=== PATIENT | female | born 1940 | race Caucasian/White ===

== ENCOUNTER 2017-10-18 11:29 | Day surgery (SDC) | payer MEDICARE ==
[2017-10-15 14:14] LABS: BLOOD UREA NITROGEN 28 mg/dL (7-18)
[2017-10-15 14:19] LABS: ASPARTATE AMINO TRANSFERASE 23 U/L (15-37)
[~2017-10-18] VITALS: Ht 157.5 cm; Wt 81.1 kg
[~2017-10-18 11:29] MED LIST: CHOL100012 PO; DILT180C59 PO; FEBU40TA PO; HYDR12.58 PO; PANT40TA5 PO; PRAV80TA2 PO; VALS320T2 PO
[2017-10-18 11:52] VITALS: BP 153/75
[2017-10-18] MEDS ORDERED: LACTATED RINGERS 1,000 ML IV SCH (11:54)
[2017-10-18] MEDS ORDERED: ROCURONIUM 10 MG/ML,10ML ONE (13:53)
[2017-10-18] MEDS ORDERED: SUCCINYLCHOLINE 20 MG/ML, 10ML ONE (13:53)
[2017-10-18] MEDS ORDERED: PROPOFOL 10 MG/ML, 20ML ONE (13:53)
[2017-10-18] MEDS ORDERED: DEXAMETHASONE 4 MG/ML, 1ML ONE ×2 (14:19)
[2017-10-18] MEDS ORDERED: ONDANSETRON 2MG/ML, 2ML ONE (14:19)
== END 2017-10-18 17:15 ==
LOC: OUT 11:29
PROVIDERS: ATTEND Internal Medicine Gastroenterology
DX: K80.50 Calculus of bile duct without cholangitis or cholecystitis without obstruction (principal); K31.7 Polyp of stomach and duodenum; K57.10 Diverticulosis of small intestine without perforation or abscess without bleeding; K21.9 Gastro-esophageal reflux disease without esophagitis; E78.00 Pure hypercholesterolemia, unspecified; I10 Essential (primary) hypertension; Z95.0 Presence of cardiac pacemaker; Z90.710 Acquired absence of both cervix and uterus; Z90.49 Acquired absence of other specified parts of digestive tract; Z88.0 Allergy status to penicillin; Z88.8 Allergy status to other drugs, medicaments and biological substances; Z91.040 Latex allergy status
CPT/HCPCS: 36415; 43264; 74328; 80053; 88305; 93005; C1769; J0330; J1100; J2405; J2704; J7120